=== PATIENT | female | born 1955 | race Caucasian/White ===

== ENCOUNTER → 2017-03-22 | Outpatient (CLI) | payer BC ==
--- NOTE | 2017-03-22 08:09 | BD ---
EXAMINATION TYPE: MG DEXA axial skeleton. DATE OF EXAM: 03/22/2017 COMPARISON: DEXA bone scan January 20, 2015 CLINICAL HISTORY: Postmenopausal female Height: 66 Weight: 193.6 FRAX RISK QUESTIONS: Alcohol (3 or more units per day): no Family History (Parent hip fracture): no Glucocorticoids (More than 3mos): no (Ex: prednisone, prednisolone, methylprednisolone, dexamethasone, and hydrocortisone). History of Fracture in Adulthood: no Secondary Osteoporosis: 1. Type 1 Diabetes: no 2. Hyperthyroidism: no 3. Menopause before 45: no 4. Malnutrition: no 5. Chronic liver disease: no Rheumatoid Arthritis: no Current Tobacco Use: no RISK FACTORS HISTORY OF: Hip Fracture (Right/Left): no Spine Fracture: no History of Wrist Fracture: no Surgery to Spine/Hip(right/left)/Wrist (right/left): right wrist carpal tunnel surgery Family History of Osteoporosis: no Active: no Diet low in dairy products/other sources of calcium: no Postmenopausal woman: age 48 Take estrogen and/or progesterone medications: premarin How lon years Lost more than 2 inches in height since high school: no Frequent falls: no Poor Health: no Hyperparathyroidism: no Adrenal Insufficiency: no MEDICATIONS: losartan, simvastatin, celexa, Wellbutrin, vitamins, calcium, magnesium, biotin, Thyroid Medications: synthroid How Lon years osteo med- Prolia 15 years EXAM MEASUREMENTS: Bone mineral densitometry was performed using the Ge[employer] System. Bone mineral density as measured about the Lumbar spine is: ----- L1-L4(G/cm2): 1.414 T Score Values are as follows: ----- L2: 1.4 ----- L3: 1.6 ----- L4: 2.1 ----- L1-L4: 1.9 Bone mineral density has: increased 4.2 % since study of: 01.20.2015 Bone mineral density about the R hip (g/cm2): 0.750 Bone mineral density about the L hip (g/cm2): 0.787 T Score values are as follows: -----R Neck: -2.1 -----L Neck: -1.8 -----R Total: -1.4 -----L Total: -1.1 Bone mineral density has: increased 2.5 % since study of: 01.20.2015 IMPRESSION: Osteopenia (T Score between -2.5 and -1 as noted by T score values remains present in both hips. Bone density fairly stable from prior. There remains slightly increased risk of fracture and the patient may be considered for treatment. Re-Screen 2-5 years. NOTE: T-SCORE=SD OF THE YOUNG ADULT MEAN.
--- NOTE | 2017-03-23 07:43 | MM ---
Reason for exam: screening (asymptomatic). Last mammogram was performed 1 year and 2 months ago. History: Patient is postmenopausal and has history of other cancer at age 59. Taking estrogen for 15 years 1 month beginning at age 48. Physical Findings: A clinical breast exam by your physician is recommended on an annual basis and results should be correlated with mammographic findings. MG Screening Mammo w CAD Bilateral CC and MLO view(s) were taken. Prior study comparison: January 30, 2016, bilateral MG 3d diag mammo w/cad KATHY. October 29, 2015, right breast MG 3d diag mammo w/cad RT. The breast tissue is heterogeneously dense. This may lower the sensitivity of mammography. There is chronic nodularity in the left breast. No significant changes when compared with prior studies. ASSESSMENT: Benign, BI-RAD 2 RECOMMENDATION: Routine screening mammogram of both breasts in 1 year.
== END | disposition home or self-care (01) ==
LOC: RADMAMWWP 07:18
PROVIDERS: ATTEND Obstetrics & Gynecology
DX: Z12.31 Encounter for screening mammogram for malignant neoplasm of breast (principal); M85.89 Other specified disorders of bone density and structure, multiple sites
CPT/HCPCS: 77080; G0202

== ENCOUNTER → 2017-11-03 | Outpatient (CLI) | payer BC ==
[~2017-11-03] MED LIST: DENOSUMAB 60 MG/ML 1 ML SYRINGE SQ ONE
[2017-11-03 11:03] VITALS: BP 169/75; PULSE 60; RESP 16; TEMP 97.9
== END | disposition home or self-care (01) ==
LOC: PROCWHC3 10:48
PROVIDERS: ATTEND Family Medicine
DX: M81.0 Age-related osteoporosis without current pathological fracture (principal)
CPT/HCPCS: 96372; J0897

== ENCOUNTER → 2018-02-24 | Outpatient (CLI) | payer BC ==
--- NOTE | 2018-02-24 09:39 | CT ---
EXAMINATION TYPE: CT sinus wo con DATE OF EXAM: 02/24/2018 COMPARISON: None HISTORY: Chronic Sinusitis CT DLP: 544.[address] of the paranasal sinuses was performed in the axial and coronal planes. Bone and soft tissue settings are submitted. The paranasal sinuses demonstrate normal aeration and development. Partial ethmoidectomy changes noted. Mild mucosal thickening at the base of the right maxillary sinus and sphenoid sinus. The osteal meatal units are patent bilaterally. The nasal septum is midline. No bony destructive changes are seen within the field of view. IMPRESSION: Partial ethmoidectomy changes noted. Mild mucosal thickening at the base of the right maxillary sinus and sphenoid sinus.
== END | disposition home or self-care (01) ==
LOC: RADCTMAIN 09:13
PROVIDERS: ATTEND Otolaryngology
DX: J34.89 Other specified disorders of nose and nasal sinuses (principal); Z98.890 Other specified postprocedural states
CPT/HCPCS: 70486

== ENCOUNTER → 2018-04-06 | Outpatient (CLI) | payer BC ==
--- NOTE | 2018-04-10 10:27 | MM ---
Reason for exam: screening (asymptomatic). Last mammogram was performed 1 year ago. History: Patient is postmenopausal and has history of other cancer at age 59. Taking estrogen for 15 years 1 month beginning at age 48. Physical Findings: A clinical breast exam by your physician is recommended on an annual basis and results should be correlated with mammographic findings. MG 3D Screening Mammo W/Cad Bilateral CC and MLO view(s) were taken. Prior study comparison: March 22, 2017, bilateral MG screening mammo w CAD. January 30, 2016, bilateral MG 3d diag mammo w/cad KATHY. The breast tissue is heterogeneously dense. This may lower the sensitivity of mammography. No significant changes when compared with prior studies. ASSESSMENT: Benign, BI-RAD 2 RECOMMENDATION: Routine screening mammogram of both breasts in 1 year.
== END ==
LOC: RADMAMWWP 11:26
PROVIDERS: ATTEND Obstetrics & Gynecology
DX: Z12.31 Encounter for screening mammogram for malignant neoplasm of breast (principal)
CPT/HCPCS: 77063; 77067

== ENCOUNTER → 2018-09-29 | Outpatient (CLI) | payer MEDICARE, BC ==
[2018-09-29 10:55] LABS: Basophils # (A) 0.1 k/uL (0-0.2); Basophils % (A) 0 %; Eosinophils # (A) 0.1 k/uL (0-0.7); Eosinophils % (A) 0 %; HGB 14.9 gm/dL (11.4-16.0); Lymphocytes # (A) 4.1 k/uL (1.0-4.8); Lymphocytes % (A) 37 %; MCH 30.3 pg (25.0-35.0); MCV 91.8 fL (80.0-100.0); Mean Platelet Volume 7.1; Monocytes # (A) 0.7 k/uL (0-1.0); Monocytes % (A) 6 %; Neutrophils # (A) 6.2 k/uL (1.3-7.7); Neutrophils % (A) 55 %; Platelet Count 283 k/uL (150-450); RDW 13.9 % (11.5-15.5); WBC 11.3 k/uL (3.8-10.6)
[2018-09-29 11:00] LABS: Appearance,Urine Cloudy (Clear); Bacteria,Urine Occasional /hpf; Bilirubin,Urine Negative (Negative); Blood,Urine Negative (Negative); Calcium Oxalate Crystals,Urine Occasional /hpf; Color,Urine Yellow; Glucose,Urine (UA) Negative (Negative); Ketones,Urine Negative (Negative); Leukocyte Esterase,Urine Negative (Negative); Mucus,Urine Rare /hpf; Nitrite,Urine Negative (Negative); PH, Urine 5.5 (5.0-8.0); Protein,Urine Negative (Negative); RBC,Urine 3 /hpf (0-5); Specific Gravity,Urine 1.026 (1.001-1.035); Squamous Epithelial Cell,Urine 12 /hpf (0-4); Urobilinogen,Urine <2.0 mg/dL (<2.0); WBC,Urine 5 /hpf (0-5)
[2018-09-29 11:03] LABS: Calcium 10.1 mg/dL (8.4-10.2); Potassium 3.4 mmol/L (3.5-5.1)
[2018-09-29 11:13] LABS: INR 0.9 (<1.2); Partial Thromboplastin Time 22.1 sec (22.0-30.0); Prothrombin Time 10.2 sec (9.0-12.0)
== END ==
LOC: LABPAT 09:50
PROVIDERS: ATTEND Orthopaedic Surgery Orthopaedic Surgery of the Spine
DX: Z01.812 Encounter for preprocedural laboratory examination (principal); M50.220 Other cervical disc displacement, mid-cervical region, unspecified level
CPT/HCPCS: 36415; 80048; 81001; 85025; 85610; 85730; 86850; 86900; 86901

== ENCOUNTER 2018-10-11 09:34 | Day surgery (SDC) | payer BC, MEDICARE ==
[~2018-10-11 09:34] MED LIST changes: +BACITRACIN 50,000 UNIT, POLYMYXIN B 500,000 UNIT in SODIUM CHLORIDE 0.9% IRRIGATIO 1,00... IRRIGATION ONE; -DENOSUMAB 60 MG/ML 1 ML SYRINGE SQ ONE; +DEXAMETHASONE SOD PHOSPHATE 10 MG/ML 1 ML VIAL IV ONE; +LIDOCAINE 1% 20 ML VIAL (10MG/ML) FOR IV START INTRADERMA PRN; +MIDAZOLAM 2 MG/2 ML VIAL IV PRN; +ONDANSETRON 4 MG/2 ML VIAL IVP ONE; +SCOPOLAMINE 1.5MG/72HR PATCH TRANSDERM ONE; +ceFAZolin IN SWFI 2 GM/20 ML SYRINGE IVP ONE
[2018-10-11 10:22] LABS: Glucose,Whole Blood 111 mg/dL (75-99)
[2018-10-11] MEDS: LACTATED RINGERS 1,000 ML IV SCH (10:24)
[2018-10-11] MEDS ORDERED: ePHEDrine SULFATE/0.9% NACL/PF 50 MG/5 ML SYRINGE IV ONE (10:40)
[2018-10-11] MEDS ORDERED: PHENYLEPHRINE-0.9% NACL SYG 1 MG/10 ML SYRINGE ONE (10:40)
[2018-10-11] MEDS ORDERED: ROCURONIUM BROMIDE 10 MG/ML 10 ML VIAL IV ONE (10:40)
[2018-10-11] MEDS ORDERED: DEXAMETHASONE SOD PHOS (MDV) 100 MG/10 ML VIAL ONE (10:40)
[2018-10-11] MEDS ORDERED: fentaNYL (PF) 50 MCG/ML 2 ML AMP ONE (10:40)
[2018-10-11] MEDS ORDERED: MIDAZOLAM 2 MG/2 ML VIAL ONE (10:40)
[2018-10-11] MEDS ORDERED: SUCCINYLCHOLINE CHLORIDE 100 MG/5 ML SYR IV ONE (10:40)
[2018-10-11] MEDS ORDERED: GLYCOPYRROLATE 0.2 MG/ML 2 ML VIAL ONE (10:40)
[2018-10-11] MEDS ORDERED: HYDROmorphone (PF) 1 MG/ML ONE (10:40)
[2018-10-11] MEDS ORDERED: LIDOCAINE 1% INJ 10MG/ML (20 ML MDV) ONE (10:40)
[2018-10-11] MEDS ORDERED: PROPOFOL 10 MG/ML 20 ML VIAL IV ONE (10:40)
[2018-10-11] MEDS ORDERED: THROMBIN (BOVINE) 5,000 UNIT VIAL MISCELLANE ONE (11:05)
[2018-10-11] MEDS ORDERED: GELATIN SPONGE,ABSORB (LARGE) 1 EACH SPONGE MISCELLANE ONE (11:05)
[2018-10-11] MEDS ORDERED: BUPIVACAINE-EPI 0.5%-1:200,000 10 ML VIAL SQ ONE ×2 (11:05→11:28)
[2018-10-11] MEDS ORDERED: LACTATED RINGERS 1,000 ML IV ONE (11:48)
--- NOTE | 2018-10-11 12:08 | XR ---
EXAMINATION TYPE: XR cervical spine 1V DATE OF EXAM: 10/11/2018 COMPARISON: NONE HISTORY: Neck pain. TECHNIQUE: Portable crosstable lateral view of cervical spine is obtained intraoperatively FINDINGS: Exam is for surgical planning and not for diagnostic purposes. Metallic pointer is placed a t C5-C6 disc space level. There is moderate spurring and disc space narrowing at C4-C5 and C5-C6 leve ls noted. IMPRESSION: As above.
--- NOTE | 2018-10-11 13:22 | XR ---
EXAMINATION TYPE: XR cervical spine 1V DATE OF EXAM: 10/11/2018 COMPARISON: NONE HISTORY: Neck pain. Hardware placement. TECHNIQUE: Portable crosstable lateral view of cervical spine is obtained intraoperatively. FINDINGS: There is new anterior fusion plate from C4 through C7 levels. There is suboptimal evaluatio n below C6 level due to overlying shoulders. Visualized portion of cervical spine shows satisfactory alignment. Artificial rectangular disc spacers noted C4-C5 and C5-C6 levels. Partial visualization of endotracheal tube. IMPRESSION: As above.
[2018-10-11] MEDS ORDERED: ACETAMINOPHEN TAB 325 MG TAB PO PRN (13:31)
[2018-10-11] MEDS ORDERED: HYDROmorphone 1 MG/ML 1 ML SYRINGE IVP PRN (13:31)
[2018-10-11] MEDS ORDERED: ONDANSETRON 4 MG/2 ML VIAL IVP PRN (13:31)
[2018-10-11] MEDS ORDERED: HYDROmorphone 0.5 MG/0.5 ML SYRINGE IVP PRN (13:31)
[2018-10-11] MEDS ORDERED: FAMOTIDINE 20 MG TAB PO PRN (13:33)
--- NOTE | 2018-10-11 13:39 | P.OP ---
Date of Procedure: 10/11/18 Preoperative Diagnosis: Herniated nucleus pulposis C45 C5 6 C6 7, cervical stenosis C4 5 C5 6 C6 7, upper extremity radiculopathy, degenerative disc disease, neck pain Postoperative Diagnosis: Same Anesthesia: GETA Pathology: none sent Condition: stable Disposition: PACU Description of Procedure: BRIEF OPERATIVE NOTE Preoperative Diagnosis:Herniated nucleus pulposis C45 C5 6 C6 7, cervical stenosis C4 5 C5 6 C6 7, upper extremity radiculopathy, degenerative disc disease, neck pain Postoperative Diagnosis:Herniated nucleus pulposis C45 C5 6 C6 7, cervical stenosis C4 5 C5 6 C6 7, upper extremity radiculopathy, degenerative disc disease, neck pain Procedure: Anterior cervical decompression with discectomy and fusion C4 5 C5 6 C6 7 Placement of interbody graftC4 5 C5 6 C6 7 Application of anterior cervical plateC4 5 C5 6 C6 7 Surgeon: Dr. Randall Patch Press Operator: dental chairside assistant Anesthesia: General anesthesia Estimated blood loss: Approximately 50 mL Complications: None apparent Components implanted: K2M [place] anterior cervical plate system with screws and Vikos interbody allograft bone graft with 1 mL DBX bone putty supplement bone graft Disposition: To recovery room in good stable condition. OPERATIVE INDICATIONS The patient has had long-standing issues in their neck and upper extremities. She was found have disc herniation with significant stenosis at C4 5 C5 6 and C6 7. She had significant degeneration and anterior and posterior osteophytes at each of these levels. She is having worsening of her symptoms despite aggressive conservative care. The patient has been through conservative treatment. We discussed various treatment options including surgery, and the patient wishes to proceed with surgery We discussed the risk, patient's alternatives and benefits of surgery including but not limited to, risk of bleeding risk of infection, risk of need for further surgery, risk of decreased, loss of motion, muscle function, malunion nonunion, hardware failure, nerve damage, paralysis, heart attack, and . OPERATIVE SUMMARY After discussing all the risks, patient alternatives and benefits at length, the patient elected to proceed with surgical intervention, signed informed consent, and presented for their procedure. The patient was seen and examined in the preoperative holding area and the surgical site was marked. The patient was given antibiotics and brought to the operating room. The patient was positioned on the operating room table in a supine position being careful to pad any bony prominences and pressure points. The patient was sedated and intubated by anesthesia in standard fashion. Once the airway and C- spine were stabilized the patient's arms were padded and tucked at her side, with her shoulders gently taped. The head was placed in a donut pad with the neck in good neutral alignment and position. We were careful to maintain the patient's cervical spine and good neutral alignment and position throughout. The patient was prepped and draped in a normal standard fashion. An appropriate timeout and keystone protocol performed. We were able to proceed with the surgery. The local wound area was infiltrated with local anesthetic. An incision was made transversely approximately 2-1/2 cm over the appropriate levels at C5 6. Dissection was taken down subcutaneously to the level of the platysma which was split in line with its fibers. Dissection was taken with a carotid approach, with the trachea and esophagus medial and the carotid sheath laterally. We dissected down to the anterior surface of the vertebral bodies. Intraoperative x-ray was taken which showed a marker at the appropriate level at C5 6. With the appropriate level positively confirmed, we were able to proceed with discectomy at the appropriate levels atC4 5 C5 6 C6 7. All of the operative levels were exposed appropriately. The patient had all their twitches back, and there was no evidence of recurrent laryngeal issue. The wound was copiously irrigated and suctioned dry as had been done periodically throughout the case. At the appropriate level/levels, starting at C4 5 and then moving to C5 6 and then C6 7 I established an annulotomy with an 11 blade scalpel. There are large osteophytes at each of the levels and there were taken down with rongeurs. A discectomy was performed with a combination of pituitary rongeurs, curettes, a high-speed bur, and Kerrison rongeurs. The posterior longitudinal ligament was taken down as were any posterior osteophytes. This gave good central and bilateral foraminal decompression. There were posterior osteophytes which were taken down as well and evidence of disc herniation at C4 5 C5 6 C6 7 causing impingement and foraminal stenosis. This was remedied with decompression and discectomy. There is no evidence of any dural tear or leak. The endplates were prepared with a high-speed bur. With the endplates in good parallel position, I was able to size for the appropriate size interbody graft. The wound was irrigated and suctioned dry the graft was prepared and malleted into position. It had good alignment and position with the anterior surface flush with the anterior surface of the vertebral bodies. This was done similarly the appropriate levels at C4 5 C5 6 and C6 7. With the grafts intact, I was able to measure and contour and appropriate sized plate. The plate was positioned at the midline over the appropriate levels at C4 5 6 and 7. Screw holes were established with a hand drill and drill guide. Screws were placed in good alignment and position with excellent bony purchase. They were seated under the locking device. The construct was checked and found to be stable. Intraoperative x-ray was taken which showed good alignment and position of the implants at the appropriate levels. There was no evidence of any dural tear or leak. Good hemostasis was maintained. The wound was copi ously irrigated and suctioned dry as had been done periodically throughout the case. The platysma was closed with absorbable suture. The subcutaneous tissue was closed. The subcuticular tissue was closed with absorbable suture. The wound was cleaned and dried and dressed appropriately. A soft cervical collar was placed appropriately. The patient was woken up by anesthesia, extubated, transferred back gently to their hospital bed and brought to the recovery room in good stable condition. The patient will be admitted to the hospital for appropriate postoperative care, medical management and monitoring. We will continue to follow them closely about the postoperative course.
[2018-10-11] MEDS ORDERED: DENOSUMAB 60 MG/ML 1 ML SYRINGE SQ SCH (13:45)
[2018-10-11] MEDS: HYDROmorphone 0.5 MG/0.5 ML SYRINGE IVP PRN ×4 (13:48→14:38)
[2018-10-11] MEDS ORDERED: KETOROLAC 30 MG/ML 1 ML VIAL IVP ONE (14:06)
[2018-10-11] MEDS: SODIUM CHLORIDE 0.9% 1,000 ML IV SCH (14:48)
[2018-10-11 15:12] VITALS: BMI 29.7
[2018-10-11] MEDS: HYDROcodone/APAP 5-325MG 1 EACH TAB PO PRN ×2 (17:43→21:50)
[2018-10-11] MEDS: ceFAZolin IN SWFI 2 GM/20 ML SYRINGE IVP SCH (20:16)
[2018-10-11] MEDS: CALCIUM CARBONATE 500 MG CHEWABLE PO SCH (20:17)
[2018-10-11] MEDS: BENZOCAINE/MENTHOL LOZENG 1 EACH LOZENGE MUCOUS MEM PRN (20:39)
[2018-10-11] MEDS ORDERED: ESTROGENS, CONJUGATED 0.45 MG TAB PO SCH (21:00)
[2018-10-11] MEDS ORDERED: SERTRALINE 25 MG TAB PO SCH (21:00)
[2018-10-11] MEDS ORDERED: ATORVASTATIN 10 MG TAB PO SCH (21:00)
[2018-10-12] MEDS: BENZOCAINE/MENTHOL LOZENG 1 EACH LOZENGE MUCOUS MEM PRN ×2 (01:25→07:55)
[2018-10-12] MEDS: ceFAZolin IN SWFI 2 GM/20 ML SYRINGE IVP SCH (03:11)
[2018-10-12] MEDS: SODIUM CHLORIDE 0.9% 1,000 ML IV SCH ×2 (03:12→08:00)
[2018-10-12] MEDS: HYDROcodone/APAP 10-325MG 1 EACH TAB PO PRN ×2 (04:57→10:01)
--- NOTE | 2018-10-12 06:26 | P.DS ---
Providers Date of admission: 10/11/18 Attending physician: Jennifer Randall Primary care physician: Vasile Flowers [facility] Course: The patient presented on the day of admission as per their operative note. She had significant stenosis at her cervical spine with disc herniation at C4 5 C5 6 and C6 7. She is having upper extremity radiculopathy and neck pain. After failing conservative treatment. He underwent further treatment and ultimately underwent surgical intervention as per her operative note. Today she feels that she is making good progress. She still has some numbness at her left arm. Her neck is feeling okay anteriorly she has some soreness at the base of her neck posteriorly. She has no neurologic change. Physical Exam The incision site is clean dry and intact. There is no erythema no drainage. There is no purulence no evidence of infection. Her neck is soft and supple. There is no drainage on the dressing. Abdomen soft and nontender. Chest has good excursion with deep inspiration and expiration. The patient has active and passive range of motion intact at the upper and lower extremities. There is no acute change in neurologic status. Hospital Course Postoperative day #1 status post anterior cervical discectomy and fusion with decompression at C4 5 C5 6 and C6 7 for herself cervical stenosis with disc herniation and upper extremity radiculopathy patient's making good progress postoperatively. The patient has been making good progress postoperatively in terms of pain and mobilization.. They have completed the prophylactic antibiotics without any signs or symptoms of infection. Her dressing is intact and waterproof and she can shower with dressing on The patient has been able to advance their diet, and is tolerating diet adequately. The pain was initially controlled with IV medications and is now controlled appropriately with oral medications. The patient has been able to increase their mobilization. She may ambulate to her tolerance. She has been able to tolerate a regular diet. The patient has progressed appropriately. I think they are in good stable condition for discharge today. They will be sent home with appropriate prescriptions. I answered their questions to the best of my ability in a language that they can understand and they are agreeable with the plan. They will follow up as directed. In approximately 2 weeks or sooner if she is having a problems Patient Condition at Discharge: Good Plan - Discharge Summary Discharge Rx Participant: Yes New Discharge Prescriptions: New HYDROcodone/APAP 10-325MG [Manning 10-325] 1 tab PO Q4HR PRN 3 Days #18 tab PRN Reason: Pain No Action Simvastatin [Zocor] 10 mg PO HS [place]ala-3 Acid Ethyl Esters [Lovaza] 4 gm PO DAILY Levothyroxine Sodium [Synthroid] 50 mcg PO DAILY Estrogens, Conjugated [Premarin] 0.45 mg PO HS Cholecalciferol [Vitamin D3] 1,000 unit PO DAILY Calcium Carbonate [Calcium] 600 mg PO BID predniSONE See Taper PO DAILY amLODIPine [Norvasc] 10 mg PO DAILY Sertraline HCl [Zoloft] 25 mg PO HS HYDROcodone/APAP 10-325MG [Manning 10-325] 1 tab PO Q6HR PRN PRN Reason: Pain Denosumab [Prolia] 60 mg SQ DIRECTED Ranitidine HCl 2 tab PO AC-SUPPER PRN PRN Reason: Dyspepsia Discharge Medication List Calcium Carbonate [Calcium] 600 mg PO BID 05/12/16 [History] Cholecalciferol [Vitamin D3] 1,000 unit PO DAILY 05/12/16 [History] Estrogens, Conjugated [Premarin] 0.45 mg PO HS 05/12/16 [History] Levothyroxine Sodium [Synthroid] 50 mcg PO DAILY 05/12/16 [History] Gualala-3 Acid Ethyl Esters [Lovaza] 4 gm PO DAILY 05/12/16 [History] Simvastatin [Zocor] 10 mg PO HS 05/12/16 [History] Denosumab [Prolia] 60 mg SQ DIRECTED 10/06/18 [History] HYDROcodone/APAP 10-325MG [Manning 10-325] 1 tab PO Q6HR PRN 10/06/18 [History] Sertraline HCl [Zoloft] 25 mg PO HS 10/06/18 [History] amLODIPine [Norvasc] 10 mg PO DAILY 10/06/18 [History] predniSONE See Taper PO DAILY 10/06/18 [History] Ranitidine HCl 2 tab PO AC-SUPPER PRN 10/11/18 [History] HYDROcodone/APAP 10-325MG [Manning 10-325] 1 tab PO Q4HR PRN 3 Days #18 tab 10/12/18 [Rx] Follow up Appointment(s)/Referral(s): Jennifer Randall DO [Doctor of Osteopathic Medicine] - 2 Weeks Activity/Diet/Wound Care/Special Instructions: Keep site clean. May shower with waterproof Tegaderm intact. Do not soak in a tub. After 72 hours postoperatively, patient May remove dressing and then may shower with area uncovered. Leave Steri-Strips intact and allow them to fray off on their own. May ambulate as tolerated. Avoid heavy or rigorous activity. No repetitive bending twisting or lifting. No overhead work. Discharge Disposition: HOME SELF-CARE
[2018-10-12] MEDS ORDERED: LEVOTHYROXINE 50 MCG TAB PO SCH (06:30)
[2018-10-12] MEDS: LACTATED RINGERS 1,000 ML IV SCH (07:47)
[2018-10-12] MEDS: CALCIUM CARBONATE 500 MG CHEWABLE PO SCH (07:50)
[2018-10-12 07:53] VITALS: BP 146/73; PULSE 73; RESP 16; TEMP 98.8
[2018-10-12] MEDS ORDERED: OMEGA ACID ETHYL ESTERS PO SCH (09:00)
[2018-10-12] MEDS ORDERED: SENNOSIDES-DOCUSATE SODIUM 1 EACH TAB PO SCH (09:00)
[2018-10-12] MEDS ORDERED: CHOLECALCIFEROL 1,000 UNIT TAB PO SCH (09:00)
[2018-10-12] MEDS ORDERED: amLODIPine 10 MG TAB PO SCH (09:00)
== END 2018-10-12 13:05 | disposition home or self-care (01) ==
LOC: OR 09:34 → 4SSUR 13:19 → OR 10-12 13:05
PROVIDERS: ATTEND Orthopaedic Surgery Orthopaedic Surgery of the Spine
DX: M50.121 Cervical disc disorder at C4-C5 level with radiculopathy (principal); M48.02 Spinal stenosis, cervical region; M50.10 Cervical disc disorder with radiculopathy, unspecified cervical region; M25.78 Osteophyte, vertebrae; M47.22 Other spondylosis with radiculopathy, cervical region; M43.12 Spondylolisthesis, cervical region; E66.3 Overweight; Z68.30 Body mass index [BMI] 30.0-30.9, adult; I10 Essential (primary) hypertension; E78.5 Hyperlipidemia, unspecified; E03.9 Hypothyroidism, unspecified; K21.9 Gastro-esophageal reflux disease without esophagitis; E78.00 Pure hypercholesterolemia, unspecified; M81.0 Age-related osteoporosis without current pathological fracture; F32.9 Major depressive disorder, single episode, unspecified; Z87.891 Personal history of nicotine dependence; Z85.828 Personal history of other malignant neoplasm of skin; Z79.890 Hormone replacement therapy; Z80.0 Family history of malignant neoplasm of digestive organs; Z80.3 Family history of malignant neoplasm of breast; Z83.3 Family history of diabetes mellitus; Z82.49 Family history of ischemic heart disease and other diseases of the circulatory system; Z79.891 Long term (current) use of opiate analgesic; Z79.899 Other long term (current) drug therapy; Z79.52 Long term (current) use of systemic steroids; Z88.1 Allergy status to other antibiotic agents; Z91.041 Radiographic dye allergy status; Z88.5 Allergy status to narcotic agent; Z88.2 Allergy status to sulfonamides; Z91.09 Other allergy status, other than to drugs and biological substances
CPT/HCPCS: 22551; 22552 ×2; 20931; 84132; 72020; C1713 ×2; C1762; J2250; J2405; J2001; J3010; J1885; J1170 ×4; J1100; J2370; J0330; J2704; J0690 ×2; 86850; 86900; 86901

== ENCOUNTER → 2019-05-04 | Outpatient (CLI) | payer BC ==
--- NOTE | 2019-05-04 10:09 | USB ---
Reason for exam: follow-up at short interval from prior study. History: Patient is postmenopausal and has history of other cancer at age 59. Taking estrogen for 15 years 1 month beginning at age 48. Physical Findings: Nurse did not find any significant physical abnormalities on exam. US Breast Limited BILAT Left limited breast ultrasound including focal area of concern, retroareolar and axilla demonstrates a 0.4 x 0.2 x 0.3cm cystic lesion at 9 o'clock and a 0.4 x 0.2 x 0.3cm lesion too small to characterize at 10 o'clock prior measured 0.4 x 0.2 x 0.4cm probable cystic cluster. Right complete breast ultrasound includes all four quadrants, the retroareolar region and axilla. Finding demonstrates no cystic or solid lesion seen. These results were verbally communicated with the patient and result sheet given to the patient on 05/04/19. ASSESSMENT: Probably benign, BI-RAD 3 RECOMMENDATION: Ultrasound of the left breast in 6 months. Follow-up diagnostic mammogram of both breasts in 6 months.
== END | disposition home or self-care (01) ==
LOC: RADUSWWP 08:14
PROVIDERS: ATTEND Student in an Organized Health Care Education/Training Program
DX: R92.8 Other abnormal and inconclusive findings on diagnostic imaging of breast (principal)

== ENCOUNTER → 2019-11-28 | Outpatient (CLI) | payer BC ==
--- NOTE | 2019-11-29 09:39 | MM ---
Reason for exam: additional evaluation requested from prior study. Last mammogram was performed 1 year ago. History: Patient is postmenopausal and has history of other cancer at age 59. Taking estrogen for 15 years 1 month beginning at age 48. Physical Findings: Nurse did not find any significant physical abnormalities on exam. MG 3D Diag Mammo W/Cad KATHY Bilateral CC and MLO view(s) were taken. Prior study comparison: November 21, 2018, bilateral MG 3d diag mammo w/cad KATHY. April 06, 2018, bilateral MG 3d screening mammo w/cad. The breast tissue is heterogeneously dense. This may lower the sensitivity of mammography. Stable benign calcifications. There is no discrete abnormality including area of concern. No significant new findings when compared with previous films. These results were verbally communicated with the patient and result sheet given to the patient on 11/28/19. ASSESSMENT: Incomplete: need additional imaging evaluation, BI-RAD 0 RECOMMENDATION: Ultrasound of the left breast.
--- NOTE | 2019-11-29 09:40 | USB ---
Reason for exam: follow-up at short interval from prior study. History: Patient is postmenopausal and has history of other cancer at age 59. Taking estrogen for 15 years 1 month beginning at age 48. US Breast Limited LT Left limited breast ultrasound including focal area of concern, retroareolar and axilla demonstrates a 3 x 2 x 2mm oval, cystic lesion at 9 o'clock. These results were verbally communicated with the patient and result sheet given to the patient on 11/28/19. ASSESSMENT: Benign, BI-RAD 2 RECOMMENDATION: Routine screening mammogram of both breasts in 1 year.
== END | disposition home or self-care (01) ==
LOC: RADMAMWWP 14:08
PROVIDERS: ATTEND Obstetrics & Gynecology
DX: R92.8 Other abnormal and inconclusive findings on diagnostic imaging of breast (principal)
CPT/HCPCS: 77062; 77066

== ENCOUNTER → 2019-12-13 | Outpatient (CLI) | payer BC ==
--- NOTE | 2019-12-13 14:06 | MR ---
EXAMINATION TYPE: MR brain and iac wo/w con DATE OF EXAM: 12/13/2019 COMPARISON: None HISTORY: R42 dizziness and giddiness TECHNIQUE: Multiplanar, multisequence images of the brain and brainstem, internal auditory canals is performed w ithout and with IV contrast, utilizing 8 mL intravenous Gadavist . Small [id number] images obtaine d through the internal auditory canals FINDINGS: Diffusion weighted images demonstrate no evidence of a recent infarct or other diffusion ab normality. There is no extra-axial fluid collection or significant white matter signal abnormality. The ventricular system and cisternal spaces are normal in size and appearance. The brain volume is age appropriate. Midline structures demonstrate normal morphology. The craniocervical junction appears within normal limits. Post contrast images demonstrate no abnormal enhancement. The dural venous sinuses appear pa tent. The visualized sinuses are remarkable for mild inflammatory change ethmoid air cells and the gl obes are intact. The cochlea and semicircular canals show symmetric appearance. No mass evident along the internal auditory canal or at the cerebellopontine angle on the left. The right cerebellopontine angle shows mildly prominent cerebral spinal fluid signal as compared to the left consistent with a possible small arachnoid cyst IMPRESSION: No acute brain abnormality. There may be a small arachnoid cyst as described of questiona ble clinical significance.
== END | disposition home or self-care (01) ==
LOC: RADMRIMAIN 11:53
PROVIDERS: ATTEND Family Medicine
DX: R42 Dizziness and giddiness (principal)
CPT/HCPCS: 70553; A9585

== ENCOUNTER → 2020-06-10 | Outpatient (CLI) | payer MEDICARE, BC ==
[~2020-06-10] MED LIST changes: -BACITRACIN 50,000 UNIT, POLYMYXIN B 500,000 UNIT in SODIUM CHLORIDE 0.9% IRRIGATIO 1,00... IRRIGATION ONE; +DENOSUMAB 60 MG/ML 1 ML SYRINGE SQ NR; -DEXAMETHASONE SOD PHOSPHATE 10 MG/ML 1 ML VIAL IV ONE; -LIDOCAINE 1% 20 ML VIAL (10MG/ML) FOR IV START INTRADERMA PRN; -MIDAZOLAM 2 MG/2 ML VIAL IV PRN; -ONDANSETRON 4 MG/2 ML VIAL IVP ONE; -SCOPOLAMINE 1.5MG/72HR PATCH TRANSDERM ONE; -ceFAZolin IN SWFI 2 GM/20 ML SYRINGE IVP ONE
[2020-06-10 09:27] VITALS: PULSE 61; RESP 16; TEMP 97.9
== END | disposition home or self-care (01) ==
LOC: PROCWHC3 09:13
PROVIDERS: ATTEND Family Medicine
DX: M81.0 Age-related osteoporosis without current pathological fracture (principal)
CPT/HCPCS: 96372; J0897

== ENCOUNTER → 2020-12-09 | Outpatient (CLI) | payer MEDICARE, BC ==
[2020-12-09 11:23] VITALS: BP 165/72; PULSE 65; RESP 16; TEMP 98.4
== END | disposition home or self-care (01) ==
LOC: PROCWHC3 11:01
PROVIDERS: ATTEND Family Medicine
DX: M81.0 Age-related osteoporosis without current pathological fracture (principal)
CPT/HCPCS: 96372; J0897

== ENCOUNTER → 2020-12-12 | Outpatient (CLI) | payer MEDICARE, BC ==
--- NOTE | 2020-12-17 11:09 | MM ---
Reason for exam: screening (asymptomatic). Last mammogram was performed 1 year ago. History: Patient is postmenopausal and has history of other cancer at age 59. Took hormonal contraceptives for 3 years. Taking estrogen for 15 years 1 month beginning at age 48. Physical Findings: A clinical breast exam by your physician is recommended on an annual basis and results should be correlated with mammographic findings. MG 3D Screening Mammo W/Cad Bilateral CC and MLO view(s) were taken. Prior study comparison: November 28, 2019, bilateral MG 3d diag mammo w/cad KATHY. November 21, 2018, bilateral MG 3d diag mammo w/cad KATHY. The breast tissue is heterogeneously dense. This may lower the sensitivity of mammography. New distortion inner upper left breast zone B. ASSESSMENT: Incomplete: need additional imaging evaluation, BI-RAD 0 RECOMMENDATION: Special view mammogram of the left breast. If lesion persists on supplemental views, image directed ultrasound is recommended. [facility] will attempt to contact patient to return for supplemental views and ultrasound if indicated.
== END | disposition home or self-care (01) ==
LOC: RADMAMWWP 09:19
PROVIDERS: ATTEND Obstetrics & Gynecology
DX: Z12.31 Encounter for screening mammogram for malignant neoplasm of breast (principal)
CPT/HCPCS: 77063; 77067

== ENCOUNTER → 2020-12-19 | Outpatient (CLI) | payer MEDICARE, BC ==
--- NOTE | 2020-12-19 09:49 | MM ---
Reason for exam: additional evaluation requested from abnormal screening. Last mammogram was performed less than 1 month ago. History: Patient is postmenopausal and has history of other cancer at age 59. Took hormonal contraceptives for 3 years. Taking estrogen for 15 years 1 month beginning at age 48. Physical Findings: Nurse did not find any significant physical abnormalities on exam. MG 3D Work Up W/Cad LT Spot compression CC, spot compression MLO, and ML view(s) were taken of the left breast. Prior study comparison: December 12, 2020, bilateral MG 3d screening mammo w/cad. November 28, 2019, bilateral MG 3d diag mammo w/cad KATHY. The breast tissue is heterogeneously dense. This may lower the sensitivity of mammography. Previous questioned distortion is not seen on current exam and presumably represented overlapping tissue. These results were verbally communicated with the patient and result sheet given to the patient on 12/19/20. ASSESSMENT: Negative, BI-RAD 1 RECOMMENDATION: Return to routine screening mammogram schedule for both breasts.
== END | disposition home or self-care (01) ==
LOC: RADMAMWWP 08:47
PROVIDERS: ATTEND Obstetrics & Gynecology
DX: R92.8 Other abnormal and inconclusive findings on diagnostic imaging of breast (principal)
CPT/HCPCS: 77065; G0279; 77061

== ENCOUNTER → 2020-12-31 | Outpatient (CLI) | payer MEDICARE, BC ==
[2020-12-31 15:29] VITALS: BMI 29.9
== END | disposition home or self-care (01) ==
LOC: DBWHC3 12:50
PROVIDERS: ATTEND Family Medicine
DX: K90.0 Celiac disease (principal)
CPT/HCPCS: 97802

== ENCOUNTER → 2021-06-12 | Outpatient (CLI) | payer BC, MEDICARE ==
[2021-06-12 13:34] VITALS: BP 153/75; PULSE 90; RESP 16; TEMP 97.8
[2021-06-12] MEDS: DENOSUMAB 60 MG/ML 1 ML SYRINGE SQ NR (13:35)
== END | disposition home or self-care (01) ==
LOC: PROCWHC3 12:53
PROVIDERS: ATTEND Family Medicine
DX: M81.0 Age-related osteoporosis without current pathological fracture (principal)
CPT/HCPCS: 96372; J0897

== ENCOUNTER → 2021-12-11 | Outpatient (CLI) | payer MEDICARE ==
[2021-12-11 13:25] VITALS: BP 182/77; PULSE 74; RESP 16; TEMP 98.2
== END ==
LOC: PROCWHC3 13:16
PROVIDERS: ATTEND Family Medicine
DX: M81.0 Age-related osteoporosis without current pathological fracture (principal); Z87.891 Personal history of nicotine dependence; Z91.048 Other nonmedicinal substance allergy status; Z91.041 Radiographic dye allergy status; Z88.1 Allergy status to other antibiotic agents; Z88.2 Allergy status to sulfonamides
CPT/HCPCS: 96372; J0897

== ENCOUNTER → 2021-12-18 | Outpatient (CLI) | payer MEDICARE ==
--- NOTE | 2021-12-21 17:10 | MM ---
Reason for Exam: Screening (asymptomatic). Last screening mammogram was performed 12 month(s) ago. Patient History: Menarche at age 11. First Full-Term at age 27. Hysterectomy at age 46. Postmenopausal. Patient has history of breast feeding. Other cancer, age 59. Currently using Estrogen, beginning at age 48 for 15 years, 1 month. Patient used Hormonal Contraceptives for 3 years. Risk Values: Elly 5 year model risk: 2.0%. NCI Lifetime model risk: 7.3%. Prior Study Comparison: 04/06/2018 Bilateral Screening Mammogram, [facility]. 11/21/2018 Bilateral Diagnostic Mammogram, [facility]. 11/28/2019 Bilateral Diagnostic Mammogram, [facility]. 12/12/2020 Bilateral Screening Mammogram, [facility]. 12/19/2020 Left Diagnostic Mammogram, [facility]. Tissue Density: The breast tissue is heterogeneously dense. This may lower the sensitivity of mammography. Findings: Analyzed By CAD. There is a rounded density with partially obscured margins measuring 18 mm by centimeters from the nipple in the upper left breast medial lateral oblique view. This appears to be an interval change. Additional workup with ultrasound is recommended. Overall Assessment: Incomplete: need additional imaging evaluation, BI-RAD 0 Management: Diagnostic Breast Ultrasound of the left breast. A negative mammogram report should not preclude additional follow up of suspicious palpable abnormalities. Patient should continue monthly self breast exam. A clinical breast exam by your physician is recommended on an annual basis and results should be correlated with mammographic findings. Electronically signed and approved by: Bucky Schmitz D.O. Radiologis
== END | disposition home or self-care (01) ==
LOC: RADMAMWWP 10:14
PROVIDERS: ATTEND Obstetrics & Gynecology
DX: Z12.31 Encounter for screening mammogram for malignant neoplasm of breast (principal)
CPT/HCPCS: 77063; 77067

== ENCOUNTER → 2021-12-25 | Outpatient (CLI) | payer MEDICARE ==
--- NOTE | 2021-12-25 09:30 | USB ---
Reason for Exam: Additional evaluation requested from abnormal screening. Patient History: Menarche at age 11. First Full-Term at age 27. Hysterectomy at age 46. Postmenopausal. Patient has history of breast feeding. Other cancer, age 59. Currently using Estrogen, beginning at age 48 for 15 years, 1 month. Patient used Hormonal Contraceptives for 3 years. Risk Values: Elly 5 year model risk: 2.0%. NCI Lifetime model risk: 7.3%. Technique: Method: Targeted. Prior Study Comparison: 12/12/2020 Bilateral Screening Mammogram, [facility]. 12/19/2020 Left Diagnostic Mammogram, [facility]. 12/18/2021 Bilateral MG 3D screening mammo w/cad, [facility]. Findings: The upper outer quadrant of the left breast, the axilla of the left breast and the retroareolar of the left breast were scanned. No solid or cystic masses are identified.. No suspicious abnormality accompanied mammographic findings. Overall Assessment: Incomplete: need additional imaging evaluation, BI-RAD 0 Management: Diagnostic Mammogram of the left breast. A clinical breast exam by your physician is recommended on an annual basis and results should be correlated with mammographic findings. Electronically signed and approved by: Bucky Schmitz D.O. Radiologis
--- NOTE | 2021-12-25 10:02 | MM ---
Reason for Exam: Additional evaluation requested from abnormal screening. Last screening mammogram was performed less than 1 month ago. Patient History: Menarche at age 11. First Full-Term at age 27. Hysterectomy at age 46. Postmenopausal. Patient has history of breast feeding. Currently using Estrogen, beginning at age 48 for 15 years, 1 month. Patient used Hormonal Contraceptives for 3 years. Risk Values: Elly 5 year model risk: 2.0%. NCI Lifetime model risk: 7.3%. Prior Study Comparison: 12/12/2020 Bilateral Screening Mammogram, [facility]. 12/19/2020 Left Diagnostic Mammogram, [facility]. 12/18/2021 Bilateral MG 3D screening mammo w/cad, [facility]. Tissue Density: Left: The breast tissue is heterogeneously dense. This may lower the sensitivity of mammography. Findings: Analyzed By CAD. Under compression no persistent suspicious nodularity is evident. The density previously identified, which may be summation density, is not evident on the compression views. Overall Assessment: Benign, BI-RAD 2 Management: Screening Mammogram of both breasts in 1 year. A clinical breast exam by your physician is recommended on an annual basis and results should be correlated with mammographic findings. This exam should not preclude additional follow-up of suspicious palpable abnormalities. Results were given to the patient verbally at the time of exam. Electronically signed and approved by: Bucky Schmitz D.O. Radiologis
== END | disposition home or self-care (01) ==
LOC: RADUSWWP 08:48
PROVIDERS: ATTEND Obstetrics & Gynecology
DX: R92.8 Other abnormal and inconclusive findings on diagnostic imaging of breast (principal)
CPT/HCPCS: 77065; 76642; G0279; 77061

== ENCOUNTER → 2022-04-05 | Outpatient (CLI) | payer MEDICARE ==
--- NOTE | 2022-04-06 11:10 | US ---
EXAMINATION TYPE: US thyroid st tissue head/neck DATE OF EXAM: 04/05/2022 COMPARISON: NONE CLINICAL HISTORY: R22.1 swelling/mass/lump in neck. Right lower neck pain x couple weeks Right lower neck along patient's area of pain: appears wnl Left lower neck for comparison: appears wnl If additional evaluation is required, CT soft tissue neck with contrast could be performed IMPRESSION: 1. No discrete abnormality to correlate with the palpable region. Clinical management recommended.
== END | disposition home or self-care (01) ==
LOC: RADUSWWP 16:07
PROVIDERS: ATTEND Family Medicine
DX: R22.1 Localized swelling, mass and lump, neck (principal)
CPT/HCPCS: 76536

== ENCOUNTER → 2022-04-17 | Outpatient (CLI) | payer MEDICARE ==
--- NOTE | 2022-04-17 09:04 | MR ---
EXAMINATION TYPE: MR cervical spine wo con DATE OF EXAM: 04/17/2022 COMPARISON: None HISTORY: 67-year-old female M43.12,M54.2,Z98.1,M54.12,M79.18, Neck pain, right shoulder and arm pain that radiates down to fingers TECHNIQUE: Multiplanar, multisequence images of the cervical spine were acquired without contrast. FINDINGS: No craniocervical junction embryonic, predental space widening, or prevertebral soft tissue swelling. Postsurgical change of C4-C7 ACDF. Alignment is maintained. Minimal residual posterior osteophytic ri dging at C4-C5 and C6-C7 contributing to minimal narrowing of the spinal canal with AP canal dimensio n narrowed down to 9 mm. There is abutment of the ventral cord without significant flattening or jared l compromise. Mild intervertebral disc desiccation throughout the visualized levels of the cervical and upper thora cic spine. Facet arthropathy and uncovertebral joint arthropathy mid to lower cervical spine. No suspicious bone marrow replacement. Normal course and signal intensity of the cervical spinal cord. At C3-C4, right-sided facet and uncovertebral joint arthropathy contributes to mild right neuroforami nal stenosis. At C4-C5, bilateral uncovertebral joint and facet arthropathy contributes to moderate right and mild left neuroforaminal narrowing. At C5-C6, bilateral uncovertebral joint and facet hyperostosis contributes to [id number] bilate ral neural foraminal narrowing. At C6-C7, there is a focal left paracentral disc osteophyte complex (axial image 17) which may abut t he traversing or exiting nerve root at this level. Changes contribute to a mild left neuroforaminal n arrowing. At C7-T1, uncovertebral joint arthropathy contributing to mild left neuroforaminal narrowing. IMPRESSION: 1. Status post C4-C7 ACDF. Some minimal residual posterior osteophytic ridging is present such as at C4-C5 and C6-C7 minimally narrowing the spinal canal down to 9 mm. There is abutment of the ventral c ord but no cord compression or canal compromise. 2. Mild degenerative disc desiccation throughout. Scattered facet and uncovertebral joint hyperostoti c degenerative change. 3. Variable bilateral neuroforaminal narrowing as outlined above. In addition, there is a focal left paracentral disc osteophyte complex at C6-C7 (axial image 17) that may abut the traversing or exiting nerve root on the left at this level.
== END | disposition home or self-care (01) ==
LOC: RADMRIMAIN 07:23
PROVIDERS: ATTEND Orthopaedic Surgery Orthopaedic Surgery of the Spine
DX: M43.12 Spondylolisthesis, cervical region (principal); M50.121 Cervical disc disorder at C4-C5 level with radiculopathy; M79.18 Myalgia, other site; M48.02 Spinal stenosis, cervical region; M25.78 Osteophyte, vertebrae; Z98.1 Arthrodesis status
CPT/HCPCS: 72141

== ENCOUNTER → 2022-05-14 | Outpatient (CLI) | payer MEDICARE ==
--- NOTE | 2022-05-14 07:49 | CT ---
EXAMINATION TYPE: CT chest wo con DATE OF EXAM: 05/14/2022 COMPARISON: None HISTORY: Chronic cough and neck/upper chest swelling. CT DLP: 429.8 mGycm, Automated exposure control for dose reduction was used. CONTRAST: Performed injected with 0 mL of Isovue 300. TECHNIQUE: Axial images were obtained at 5 mm thick sections. Reconstructed images are reviewed on [employer] computer in the coronal plane. FINDINGS: Portion of the thyroid visualized is normal. There is some subcutaneous emphysema of uncertain etiology in the right neck and supraclavicular annabelle on. Correlate for recent instrumentation. No pneumothorax is identified. Mild streaky opacities in the posterior right lung base may be some atelectasis. Some additional pneu monitis changes are within the right middle lobe and lingula may be some additional atelectasis. Infe ctious etiology is considered such as pneumonia. No enlarged mediastinal or hilar adenopathy is evident. The ascending aorta diameter at the level o f the main pulmonary artery is 2.7 cm. The main pulmonary artery diameter at the bifurcation is 2.4 cm. Minimal coronary artery calcification is present. Limited CT sections are obtained through the upper abdomen. Abdomen is essentially unremarkable. IMPRESSIONS: 1. Minimal subcutaneous emphysema in the right supraclavicular and right neck region of uncertain jose ology. 2. Minimal infiltrates within the lingula and right middle lobe likely on the basis of atelectasis. O ther etiologies including pneumonia and mass should be considered. Follow-up exam is recommended.
== END | disposition home or self-care (01) ==
LOC: RADCTMAIN 07:05
PROVIDERS: ATTEND Family Medicine
DX: J43.8 Other emphysema (principal); R91.8 Other nonspecific abnormal finding of lung field
CPT/HCPCS: 71250

== ENCOUNTER → 2022-06-22 | Outpatient (CLI) | payer MEDICARE ==
--- NOTE | 2022-06-22 11:17 | CT ---
EXAMINATION TYPE: CT chest w con DATE OF EXAM: 06/22/2022 COMPARISON: 05/14/2022 HISTORY: Subcutaneous emphysema CT DLP: 546 mGycm Automated exposure control for dose reduction was used. CONTRAST: CT scan of the chest is performed with IV Contrast, patient injected with 100 ml mL of Isovue 300. FINDINGS: LUNGS: The lungs are grossly clear, there is no concerning parenchymal mass or nodule identified. T here is no pleural effusion or pneumothorax seen. The tracheobronchial tree is patent. Resolution of previously noted subcutaneous emphysema. MEDIASTINUM: There are no greater than 1 cm hilar or mediastinal lymph nodes. No pericardial effusi on is seen. Thoracic aorta is of normal caliber. The heart is not enlarged. UPPER ABDOMEN: Hepatic steatosis. OTHER: No additional significant abnormality is seen. IMPRESSION: 1. Resolution of previously noted subcutaneous emphysema. No acute process seen within the chest.
== END | disposition home or self-care (01) ==
LOC: RADCTMAIN 08:22
PROVIDERS: ATTEND Internal Medicine Critical Care Medicine
DX: J98.2 Interstitial emphysema (principal)
CPT/HCPCS: 82565; 84520; 71260; 36415; Q9967

== ENCOUNTER → 2022-12-03 | Outpatient (CLI) | payer MEDICARE ==
--- NOTE | 2022-12-03 08:00 | MM ---
Reason for Exam: Clinical finding. Last screening mammogram was performed 12 month(s) ago. Indicated Problems: Pain of the left side (Focal) for 5 Day(s). Patient History: Menarche at age 11. First Full-Term at age 27. Hysterectomy at age 46. Postmenopausal. Patient has history of breast feeding. Currently using Estrogen, beginning at age 48 for 15 years, 1 month. Patient used Hormonal Contraceptives for 3 years. Risk Values: Elly 5 year model risk: 2.1%. NCI Lifetime model risk: 7.0%. Prior Study Comparison: 03/04/1995 Screening Mammogram, Unknown. 05/08/1996 Screening Mammogram, Unknown. 01/30/2016 Right Diagnostic Ultrasound, [facility]. 03/22/2017 Bilateral Screening Mammogram, [facility]. 04/06/2018 Bilateral Screening Mammogram, [facility]. 11/21/2018 Bilateral Diagnostic Mammogram, [facility]. 11/21/2018 Bilateral Diagnostic Ultrasound, [facility]. 05/04/2019 Bilateral Diagnostic Ultrasound, [facility]. 11/28/2019 Bilateral Diagnostic Mammogram, [facility]. 11/28/2019 Left Diagnostic Ultrasound, [facility]. 12/12/2020 Bilateral Screening Mammogram, [facility]. 12/19/2020 Left Diagnostic Mammogram, [facility]. 12/18/2021 Bilateral MG 3D screening mammo w/cad, [facility]. 12/25/2021 Left MG 3D diag mammo w/cad LT, [facility]. 12/25/2021 Left US breast workup limited LT, [facility]. Tissue Density: The breast tissue is heterogeneously dense. This may lower the sensitivity of mammography. Findings: Analyzed By CAD. No new suspicious masses, calcifications or distortions. Overall Assessment: Negative, BI-RAD 1 Management: Screening Mammogram of both breasts in 1 year. Patient's pain resolved prior to exam. Clinical management. Results were given to the patient verbally at the time of exam. Patient should continue monthly self-breast exams. A clinical breast exam by your physician is recommended on an annual basis. This exam should not preclude additional follow-up of suspicious palpable abnormalities. Note on Elly scores and lifetime risk: 1. A Elly score greater than 3% is considered moderate risk. If this is the case, consider specialist referral to assess eligibility for a risk reducing agent. 2. If overall lifetime risk for the development of breast cancer is 20% or higher, the patient may qualify for future screening with alternating mammogram and breast MRI. Electronically signed and approved by: James Sepulveda DO
== END | disposition home or self-care (01) ==
LOC: RADMAMWWP 07:34
PROVIDERS: ATTEND Obstetrics & Gynecology
DX: N64.4 Mastodynia (principal); Z78.0 Asymptomatic menopausal state
CPT/HCPCS: 77066; G0279; 77062

== ENCOUNTER → 2022-12-31 | Outpatient (CLI) | payer MEDICARE ==
[2022-12-31 10:21] VITALS: BP 165/77; PULSE 73; RESP 17; TEMP 98.1
--- NOTE | 2022-12-31 10:28 | P.GSHP ---
History of Present Illness H&P Date: 12/31/22 Chief Complaint: left bresat pain Teena is a 67 year old white female seen in consultation for Dr. Redmond regarding left breast pain. She had a bilateral mammogram on 12-03-22 which was personally reviewed and BIRAD 1. She states the pain started around the nipple area for about 5 days and then it disappeared, that was in the beginning of November 2022. The pain was more described like sensative with any pressure. She had not noted any lumps masses or nodules of concern in either breast. She did not note any nipple discharge or skin changes. She was not complaining of any pain in the right breast. She has not had anything like that in the past. She is taking Premarin 0.3 and has been on it for over 20 years. She has not had any surgery on her breast. She is not complaining of any recent trauma or infection in the past. Caffeine: 1 cup tea/day nicotine: none, stopped at 30, used to smoke 2 PPD chocolate: occasional BCP: few years hormones: for about 20 years; always Premarin at a higher dose than now, if tries to stop gets hot flashes Note Dr. Redmond 05-06-2022 Family history: mother: colon cancer maternal grandmother: colon cancer paternal grandfather: colon cancer sister: pancreatic cancer Patient has a colonoscopy every other year. Hormonal history: Menarche: 11 , breast fed: yes, age at first : 27 menopause: 45, on hormones since 45 Surgical History: partial hysterectomy bladder suspension foot surgery carpel tunnel sinus surgery 3 disc replaced in neck rotator cuff surgery Medical history: neuropathy and legs and feet osteopenia asthma I cholesterol Hypertension hyperthyroid Social History: nicotine: as above alcohol: none drugs: none - Constitutional Constitutional: Denies chills, Denies fever - EENT Comment: cataract surgery and victerectomy Eyes: denies blurred vision, denies pain Ears: bilateral: tinnitus Ears, nose, mouth and throat: Denies headache, Denies sore throat - Breasts Breasts: bilateral: as per HPI - Cardiovascular Cardiovascular: Denies chest pain, Denies shortness of breath - Respiratory Comment: asthma - Gastrointestinal Comment: IBS Gastrointestinal: Reports diarrhea - Genitourinary (Female) Genitourinary: Reports as per HPI, Denies dysuria, Denies hematuria - Menstruation Menstruation: Reports post hysterectomy - Musculoskeletal Musculoskeletal: Reports myalgias - Integumentary Integumentary: Denies pruritus, Denies rash - Neurological Neurological: Reports as per HPI - Psychiatric Psychiatric: Reports depression - Endocrine Comment: hypothyroid Endocrine: Reports weight change - Hematologic/Lymphatic Comment: none - Allergic/Immunologic Allergic/Immunologic: Reports as per HPI, Reports seasonal allergies Past Medical History Past Medical History: Asthma, Hyperlipidemia, Hypertension, Musculoskeletal Disorder, Osteoarthritis (OA), Thyroid Disorder Additional Past Medical History / Comment(s): "Leaky valve", heart murmur, neuropathy bilateral legs, nerve pain left arm and bilateral feet, hip and leg pain from Arthriris, OSTEOPENIA. History of Any Multi-Drug Resistant Organisms: None Reported Past Surgical History: Bladder Surgery, Hysterectomy, Orthopedic Surgery Additional Past Surgical History / Comment(s): Bilateral foot surgery X3, bladder suspension, bilateral carpal tunnel surgery, cataracts removed, nasal surgery for deviated septum, D&C's, right eye surgery. RIGHT ROTATER CUFF SURGERY. Past Anesthesia/Blood Transfusion Reactions: No Reported Reaction, Motion Sickness Smoking Status: Former smoker - Past Family History Sister(s) Family Medical History: Cancer, Pulmonary Embolus Additional Family Medical History / Comment(s): Pancreatic cancer. Mother Family Medical History: Cancer Additional Family Medical History / Comment(s): Colon cancer. Father Family Medical History: Cancer Additional Family Medical History / Comment(s): Skin cancer. Medications and Allergies Home Medications Medication Instructions Recorded Confirmed Type Calcium Carbonate [Calcium] 600 mg PO BID 05/12/16 12/31/22 History Cholecalciferol [Vitamin D3] 5,000 unit PO DAILY 05/12/16 12/31/22 History Levothyroxine Sodium [Synthroid] 50 mcg PO DAILY 05/12/16 12/31/22 History [place]-3 Acid Ethyl Esters [Lovaza] 4 gm PO DAILY 05/12/16 12/31/22 History Simvastatin [Zocor] 10 mg PO HS 05/12/16 12/31/22 History Denosumab [Prolia] 60 mg SQ Q182D 10/06/18 12/31/22 History Sertraline HCl [Zoloft] 50 mg PO HS 10/06/18 12/31/22 History amLODIPine [Norvasc] 10 mg PO QAM 10/06/18 12/31/22 History Esomeprazole Magnesium [NexIUM] 40 mg PO BID 01/26/21 12/31/22 History Estrogens, Conjugated [Premarin] 0.3 mg PO DAILY 01/26/21 12/31/22 History Famotidine 40 mg PO BID 01/26/21 12/31/22 History Albuterol Sulfate [Proair 180 mcg INHALATION DIRECTED 07/08/22 12/31/22 History Digihaler] Azelastine HCl [Astelin Nasal 1 spray INHALATION BID 07/08/22 12/31/22 History [place]] Biotin [Biotin Disolve] 10,000 mcg PO HS 07/08/22 12/31/22 History Fexofenadine HCl 180 mg PO HS 07/08/22 12/31/22 History Fluticasone Propionate [Flovent 1 pkg INHALATION DAILY 07/08/22 12/31/22 History [place]] Fluticasone/Umeclidin/Vilanter 1 pkg INHALATION DAILY 07/08/22 12/31/22 History [Trelegy Ellipta 200-62.5-25] Loratadine 10 mg PO DAILY 07/08/22 12/31/22 History Montelukast [Singulair] 10 mg PO DAILY 07/08/22 12/31/22 History Semaglutide [Ozempic] 0.25 mg PO Q7D 07/08/22 12/31/22 History Allergies Allergy/AdvReac Type Severity Reaction Status Date / Time adhesive Allergy Rash/Hives Verified 12/31/22 09:59 Iodinated Contrast Media Allergy Itching Verified 12/31/22 09:59 levofloxacin [From Levaquin] Allergy Unknown Verified 12/31/22 09:59 moxifloxacin [From Avelox] Allergy Unknown Verified 12/31/22 09:59 sulfamethoxazole Allergy Rash/Hives Verified 12/31/22 09:59 [From Bactrim] trimethoprim [From Bactrim] Allergy Rash/Hives Verified 12/31/22 09:59 Surgical - Exam - General no distress - Eyes normal ocular movement - Neck trachea midline - Respiratory normal respiratory effort, clear to auscultation - Cardiovascular Rhythm: regular Heart Sounds: normal: S1, S2 - Abdomen Abdomen: soft, non tender, no guarding, no rigid, no rebound - Integumentary normal turgor - Neurologic no disoriented, no combative - Musculoskeletal normal gait - Psychiatric oriented to time, oriented to person, oriented to place, speech is normal, memory intact Breast Exam: BRA: 38D Inspection: Bilateral grade 2/3 ptosis Palpation: Right breast: Multi-positional exam no dominant masses or nodules of concern, fibrocystic changes Right axilla: No adenopathy of concern Left breast: Multiple positional exam fibrocystic changes no dominant masses or nodules of concern Left axilla: No adenopathy of concern Results Mammogram reviewed, bilateral BIRADS 1 from [id number] Assessment and Plan Assessment: Impression: Fibrocystic breast changes Left breast mastodynia resolved Patient presently taking Premarin 0.3 mg has been taking this for over 20 years Plan: The patient is going to try to come off the Premarin There is nothing on examination or radiographically which would warrant breast biopsy at this time Life style modifications/decreasing caffeine are discussed Repeat bilateral mammogram in 1 year with physician exam at that time Patient will follow up sooner any questions or concerns Cc: Dr. Stringer, Dr. Andre
== END ==
LOC: WWCWWP 09:45
PROVIDERS: ATTEND Surgery
DX: N60.19 Diffuse cystic mastopathy of unspecified breast (principal); J45.909 Unspecified asthma, uncomplicated; I10 Essential (primary) hypertension; M19.90 Unspecified osteoarthritis, unspecified site; E78.5 Hyperlipidemia, unspecified; M85.80 Other specified disorders of bone density and structure, unspecified site; Z87.891 Personal history of nicotine dependence; Z79.890 Hormone replacement therapy; Z91.048 Other nonmedicinal substance allergy status; Z91.041 Radiographic dye allergy status; Z88.2 Allergy status to sulfonamides; Z88.1 Allergy status to other antibiotic agents; Z79.51 Long term (current) use of inhaled steroids

== ENCOUNTER → 2023-01-20 | Outpatient (CLI) | payer MEDICARE ==
[~2023-01-20] MED LIST changes: -DENOSUMAB 60 MG/ML 1 ML SYRINGE SQ NR; +DENOSUMAB 60 MG/ML 1 ML SYRINGE SQ ONE
[2023-01-20 13:43] VITALS: BP 176/68; PULSE 74; RESP 15; TEMP 97.8
== END ==
LOC: PROCWHC3 13:20
PROVIDERS: ATTEND Family Medicine
DX: M81.0 Age-related osteoporosis without current pathological fracture (principal)
CPT/HCPCS: 96372

== ENCOUNTER → 2023-06-03 | Outpatient (CLI) | payer MEDICARE ==
--- NOTE | 2023-06-06 17:34 | MR ---
EXAMINATION TYPE: MR tspine/lspine wo con DATE OF EXAM: 06/03/2023 9:28 PM CLINICAL INDICATION:Female, 68 years old with history of M51.37 Degenerative disc disease; COMPARISON: 06/22/2022. TECHNIQUE: Multi planar, multi sequence imaging was performed utilizing: T1-weighted, T2-weighted, a nd turbo inversion recovery imaging of the thoracic and lumbar spine. IV Contrast: . None. FINDINGS: Alignment: The thoracic and lumbar vertebral bodies have preserved heights and alignment. Cord: The conus medullaris and the distal spinal cord appear unremarkable with regards to their signa l intensity and morphology. Bones/Discs: Bone signal is within normal limits. Multilevel degenerative disc disease is noted. Mul tilevel disc desiccation is present. THORACIC: Central osteophyte which narrows subacute arachnoid space at T7-T8. This is similar prior CT. This mi ldly impresses upon the spinal cord. No evidence significant spinal canal or neural foraminal stenosi s. Spinal cord is within normal limits. LUMBAR: T12-L1: No evidence of significant spinal canal stenosis or neural foraminal stenosis. L1-L2: No evidence of significant spinal canal stenosis or neural foraminal stenosis. L2-L3: Central disc protrusion without significant spinal canal stenosis. There is facet joint arthro marixa without significant spinal canal or neural foraminal stenosis. L3-L4: Disc bulge and facet joint arthropathy result in mild spinal canal and mild to moderate bilate ral neural foraminal stenosis. L4-L5: Disc bulge and facet joint arthropathy result in mild spinal canal and moderate left and mild right. Bilateral neural foraminal stenosis. L5-S1: The disc is rounded posterior morphology without significant spinal canal stenosis. Facet join t arthropathy with mild neural foraminal stenosis. Other findings: None. IMPRESSION: 1. L2-L3 central disc fusion without significant spinal canal or neural foraminal stenosis. 2. [id number]-lg-[id number] multilevel degeneration changes throughout the spine without significant spinal canal stenosis. 3. Neural foraminal stenosis worse at left L4-L5 with moderate left.
== END | disposition home or self-care (01) ==
LOC: RADMRIMAIN 20:30
PROVIDERS: ATTEND Anesthesiology
DX: M99.73 Connective tissue and disc stenosis of intervertebral foramina of lumbar region (principal); M51.37 Other intervertebral disc degeneration, lumbosacral region; M47.816 Spondylosis without myelopathy or radiculopathy, lumbar region
CPT/HCPCS: 72146; 72148

== ENCOUNTER → 2023-07-27 | Outpatient (CLI) | payer MEDICARE ==
[2023-07-27] MEDS: DENOSUMAB 60 MG/ML 1 ML SYRINGE SQ NR (10:51)
[2023-07-27 11:03] VITALS: BP 154/73; PULSE 64; RESP 16; TEMP 97.8
== END ==
LOC: PROCWHC3 10:24
PROVIDERS: ATTEND Family Medicine
DX: M81.0 Age-related osteoporosis without current pathological fracture (principal)
CPT/HCPCS: 96372; J0897

== ENCOUNTER → 2024-01-26 | Outpatient (CLI) | payer MEDICARE ==
--- NOTE | 2024-02-01 12:38 | MM ---
Reason for Exam: Screening (asymptomatic). Last mammogram was performed 1 year(s) and 1 month(s) ago. Patient History: Menarche at age 11. First Full-Term at age 27. Hysterectomy at age 46. Postmenopausal. Patient has history of breast feeding. Currently using Estrogen, beginning at age 48 for 15 years, 1 month. Patient used Hormonal Contraceptives for 3 years. Risk Values: Elly 5 year model risk: 2.1%. NCI Lifetime model risk: 6.7%. Prior Study Comparison: 12/18/2021 Bilateral MG 3D screening mammo w/cad, [facility]. 12/25/2021 Left MG 3D diag mammo w/cad LT, [facility]. 12/03/2022 Bilateral MG 3D diag mammo w/cad KATHY, [facility]. Tissue Density: There are scattered areas of fibroglandular density. Findings: Analyzed By CAD. Right breast: There is no suspicious group of microcalcifications or new suspicious mass. Left breast: There is no suspicious group of microcalcifications or new suspicious mass. Overall Assessment: Negative, BI-RAD 1 Management: Screening Mammogram of both breasts in [address] [facility] will attempt to contact patient to return for supplemental views and ultrasound if indicated. Patient should continue monthly self-breast exams. A clinical breast exam by your physician is recommended on an annual basis. This exam should not preclude additional follow-up of suspicious palpable abnormalities. Note on Elly scores and lifetime risk: 1. A Elly score greater than 3% is considered moderate risk. If this is the case, consider specialist referral to assess eligibility for a risk reducing agent. 2. If overall lifetime risk for the development of breast cancer is 20% or higher, the patient may qualify for future screening with alternating mammogram and breast MRI. Electronically signed and approved by: James Sepulveda DO
== END | disposition home or self-care (01) ==
LOC: RADMAMWWP 10:31
PROVIDERS: ATTEND Family Medicine
DX: Z12.31 Encounter for screening mammogram for malignant neoplasm of breast
CPT/HCPCS: 77063; 77067

== ENCOUNTER → 2024-01-26 | Outpatient (CLI) | payer MEDICARE ==
[~2024-01-26] MED LIST changes: +DENOSUMAB 60 MG/ML 1 ML SYRINGE SQ NR; -DENOSUMAB 60 MG/ML 1 ML SYRINGE SQ ONE
== END ==
LOC: PROCWHC3 10:13
PROVIDERS: ATTEND Family Medicine
DX: Z53.9 Procedure and treatment not carried out, unspecified reason (principal)

== ENCOUNTER → 2024-02-02 | Outpatient (CLI) | payer MEDICARE ==
[2024-02-02 14:34] VITALS: BP 176/74; PULSE 65; RESP 16; TEMP 98
[2024-02-02] MEDS: DENOSUMAB 60 MG/ML 1 ML SYRINGE SQ NR (14:37)
== END ==
LOC: PROCWHC3 14:15
PROVIDERS: ATTEND Family Medicine
DX: M81.0 Age-related osteoporosis without current pathological fracture (principal)
CPT/HCPCS: 96372; J0897

== ENCOUNTER 2024-02-08 09:32 | Day surgery (SDC) | payer MEDICARE ==
[~2024-02-08 09:32] MED LIST changes: -DENOSUMAB 60 MG/ML 1 ML SYRINGE SQ NR; +LIDOCAINE 1% (10MG/ML) FOR IV START INTRADERMA PRN
[2024-02-08 10:04] VITALS: RESP 16; TEMP 98.5
[2024-02-08] MEDS: IV FLUID CONTINUATION 1,000 ML IV ONE (10:18)
[2024-02-08] MEDS: LACTATED RINGERS 1,000 ML IV SCH (10:19)
[2024-02-08] MEDS ORDERED: PROPOFOL 10 MG/ML 20 ML VIAL IV ONE (10:36)
--- NOTE | 2024-02-08 10:53 | P.PCN ---
Date of Procedure: 02/08/24 (Normal colonoscopy) Procedure(s) Performed: BRIEF HISTORY: Patient is a 68-year-old pleasant white female scheduled for an elective colonoscopy as a part of screening for colon cancer and strong family history of colon cancer. Her mother was diagnosed with colon cancer at age 60 colon 60 and her maternal grandmother 70. PROCEDURE PERFORMED: Colonoscopy. PREOPERATIVE DIAGNOSIS: Screening for colon cancer and family history of colon cancer. IV sedation per Anesthesia. PROCEDURE: After informed consent was obtained, the patient, was brought into the endoscopy unit. IV sedation was administered by Anesthesia under continuous monitoring. Digital rectal examination was normal. Initially the Olympus CF-160 flexible video colonoscope was then inserted in the rectum, gradually advanced into the cecum without any difficulty. Careful examination was performed as the scope was gradually being withdrawn. Ileocecal valve and the appendiceal orifice were visualized and appeared normal. Prep was excellent. Mucosa of the cecum, ascending colon, transverse colon, descending colon, sigmoid colon, and rectum appeared normal. Retroflexion was performed in the rectum and no lesions were seen. The patient tolerated the procedure well. IMPRESSION: Normal-appearing colon from rectum to cecum with no evidence of colorectal neoplasia. RECOMMENDATIONS: Findings of this examination were discussed with the patient as well as her family. She was advised to have a repeat screening colonoscopy in 3 years because of the strong family history of colon cancer..
[2024-02-08 11:21] VITALS: BP 159/65; PULSE 64
== END 2024-02-08 11:45 | disposition home or self-care (01) ==
LOC: ORWHC2ENDO 09:32
PROVIDERS: ATTEND Internal Medicine Gastroenterology
DX: Z12.11 Encounter for screening for malignant neoplasm of colon (principal); I10 Essential (primary) hypertension; E78.5 Hyperlipidemia, unspecified; J45.909 Unspecified asthma, uncomplicated; E07.9 Disorder of thyroid, unspecified; M19.90 Unspecified osteoarthritis, unspecified site; Z79.890 Hormone replacement therapy; Z79.899 Other long term (current) drug therapy; Z79.1 Long term (current) use of non-steroidal anti-inflammatories (NSAID); Z80.0 Family history of malignant neoplasm of digestive organs

== ENCOUNTER → 2024-06-18 | Outpatient (CLI) | payer MEDICARE ==
--- NOTE | 2024-06-18 15:23 | US ---
EXAMINATION TYPE: US arterial LE single level DATE OF EXAM: 06/18/2024 2:23 PM COMPARISONS: None. CLINICAL INDICATION: Female, 69 years old with history of M79.604 PAIN IN R LEG I73.9 PVD; feet are n umb and hurt ever since plantar fascitis surgery 15 years ago, right thigh pain that stops her from w alking, getting worse TECHNIQUE: Systolic pressures were taken of the upper and lower extremity arteries with ankle-brachia l indices and toe brachial indices calculated bilaterally. History of: Smoker: previous Hypertension: y Diabetic: n Hyperlipidemia: y TIA/CVA: n Previous Vascular Surgery: n CAD: n FL: n Vascular Ulcers: n Claudication: n Gangrene: n FINDINGS: Doppler Waveforms: Right: Monophasic waveforms involving the posterior tibial and dorsalis pedis arteries. Left: Biphasic waveforms involving the posterior tibial and dorsalis pedis arteries. Brachial Artery systolic pressure: Right: 170 Left: 177 Posterior Tibial artery systolic pressure: Right: 88 Left: 193 Dorsalis Pedis artery systolic pressure: Right: 83 Left: 225 Ankle-Brachial Indices: Right: 0.5 Left: 1.3 IMPRESSION: OVI: Right: Moderate Arterial Disease 0.5-0.8, Recommendation: Refer to vascular specialist Left: Normal 0.9 - 1.4, Recommendation: None [facility], , 06/18/2024 3:20 PM
--- NOTE | 2024-06-18 15:25 | US ---
EXAMINATION TYPE: US venous doppler duplex LE RT DATE OF EXAM: 06/18/2024 2:29 PM COMPARISON: NONE CLINICAL INDICATION: Female, 69 years old with history of M79.604 PAIN IN R LEG I73.9 PVD; Right thig h pain TECHNIQUE: The lower extremity deep venous system is examined utilizing real time linear array sonog larissa with graded compression, color doppler sonography, and spectral doppler. SIDE PERFORMED: Right FINDINGS: VESSELS IMAGED: Common Femoral Vein Deep Femoral Vein Greater Saphenous Vein * Femoral Vein Popliteal Vein Small Saphenous Vein * Proximal Calf Veins (* superficial vessels) Right Leg: Negative for DVT, Color Doppler imaging shows patency of the vessels. Spectral waveforms are within normal limits. IMPRESSION: No evidence of deep vein thrombosis of the right lower extremity. [facility], , 06/18/2024 3:23 PM
== END | disposition home or self-care (01) ==
LOC: RADUSWWP 13:26
PROVIDERS: ATTEND Family Medicine
DX: M79.604 Pain in right leg (principal); I73.9 Peripheral vascular disease, unspecified; E11.51 Type 2 diabetes mellitus with diabetic peripheral angiopathy without gangrene; E78.5 Hyperlipidemia, unspecified; I10 Essential (primary) hypertension; I25.10 Atherosclerotic heart disease of native coronary artery without angina pectoris; Z86.73 Personal history of transient ischemic attack (TIA), and cerebral infarction without residual deficits; Z87.891 Personal history of nicotine dependence
CPT/HCPCS: 93922

== ENCOUNTER 2024-08-24 10:20 | Outpatient (CLI) | payer MEDICARE ==
[2024-08-24 10:37] VITALS: BP 160/76; PULSE 67; RESP 16; TEMP 97.8
[2024-08-24] MEDS: DENOSUMAB 60 MG/ML 1 ML SYRINGE SQ NR (10:38)
== END 2024-08-24 13:25 | disposition home or self-care (01) ==
LOC: PROCWHC3 10:20
PROVIDERS: ATTEND Family Medicine
DX: M81.0 Age-related osteoporosis without current pathological fracture (principal)
CPT/HCPCS: 96372; J0897